=== PATIENT | female | born 1985 | race Two or more races ===

== ENCOUNTER 2016-10-10 09:08 | Emergency (ER) | payer OTHER ==
[~2016-10-10] VITALS: Ht 165.1 cm; Wt 75.3 kg
--- NOTE | 2016-10-10 09:56 | PD ---
HPI Travel History International Travel<30 Days: No Contact w/Intl Traveler<30Days: No Known Affected Area: No History of Present Illness HPI This patient is a 31-year-old 1 para 0 EDC is November 24, 2016 presently at 33 weeks and 4 days she presents with a chief complaint of a mucoid discharge She states that she's had a discharge throughout the however today 8 Progressively worse and then she passed a glob wanted to make sure that her water didn't break or she passed her mucous plug No watery type discharge no bleeding mild cramping in her lower abdomen no contractions no odors or itching in the discharge No fever no chills no nausea no vomiting no diarrhea or constipation baby is active No major problems History Past Medical History Narrative Medical No known drug allergies no major medical problems Obstetric History Obstetric History First Past Surgical History Narrative Surgical History of jaw surgery in 2003 Tonsils and 2007 Laser surgery of her cervix Family History Family History: Negative Social History Alcohol Use: No Tobacco Use: No Substance Abuse: No Allergies-Medications (Allergen,Severity, Reaction): Coded Allergies: No Known Allergies (Unverified , 10/10/16) Review of Systems General / Constitutional: No: Fever, Weight Gain, Weight Loss, Chills, Other Eyes: No: Diploplia, Blurred Vision, Visual changes, Pain, Photophobia, Other HENT: No: Headaches, Vertigo, Dental Difficulties, Lightheadedness, Other Cardiovascular: No: Irregular Rhythm, Chest Pain or Discomfort, Palpitations, Tachycardia, Syncope, Varicosities, Edema, Cyanosis, Other Respiratory: No: Cough, Short of Breath, Wheezing, Other Gastrointestinal: Abdominal Pain (mild cramping as per history of present illness) Genitourinary: Discharge (mucoid discharge as per history of present illness) Musculoskeletal: No: Limited ROM, Weakness, Cramping, Edema, Pain, Other Neurologic: No: Weakness, Dizziness, Syncope, Focal Abnormalities, Coordination Problem, Headache, Slurred Speech, Seizures, Other Physical Exam Narrative GENERAL: Well-nourished, well-developed patient. Alert oriented 3 and cooperative in no acute distress CARDIOVASCULAR: Regular rate and rhythm without murmurs, gallops, or rubs. RESPIRATORY: Breath sounds equal bilaterally. No accessory muscle use. ABDOMEN/GI: Gravid consistent with stated gestational age no palpable contractions no epigastric or right upper quadrant tenderness Gravid to [-] weeks size 34 weeks size Fundal Height: [-] GENITOURINARY: Speculum exam is done thin white discharge amnisure is negative wet prep done and pending no gross fluid no blood Cervix is visibly closed External Genitalia: intact and normal in appearance BUS glands: [-] Cervix: [-] Posterior firm Dilatation: [-] 0 Effacement: [-] 0 Station: [-] Ballotable Presentation: [-] Vertex Membranes: [intact Uterine Contractions: [-]0 no rhett contractions seen mild irritability FHT's: Category: [-] 1 Baseline: [-]140 Reactive: [-] + Variability: [-] Moderate [id number] variability Decels: [-] 0 EXTREMITIES: No cyanosis or edema. NEUROLOGICAL: Awake and alert. Motor and sensory grossly within normal limits. Five out of 5 muscle strength in all muscle groups. Normal speech. Data Data Vital Signs Reviewed: Yes (blood pressures 106/73 pulse 108 temperatures 98.4) MDM Medical Record Reviewed: No (no medical records available) Interpretation(s) 31-year-old at 33 weeks and 4 days No clinical evidence of ruptured membranes Clinical evidence of labor Rule out UTI Rule out vaginitis Narrative Course / MDM Plan wet prep and urinalysis returned we'll have the on coming hospitalist at an addendum with results Patient being signed out on coming hospitalist Plan External monitoring By mouth fluid hydration amnisure is negative Urinalysis Wet prep Labs to be reviewed upon return Diagnosis Diagnosis: Primary Impression: with 33 completed weeks gestation Additional Impression: Suspected problem with amniotic cavity and membrane not found Disposition: 01 DISCHARGE HOME Condition: Stable Ria Chou MD Oct 10, 2016 09:56
[2016-10-10] MEDS ORDERED: DOCO200C (10:17)
[2016-10-10 10:29] LABS: BLOOD, URINE NEG (NEG); GLUCOSE,URINE NEG (NEG); KETONE, URINE NEG (NEG); NITRITE,URINE NEG (NEG); PH, URINE 6.5 (5.0-8.5); URINE COLOR YELLOW (YELLW/STRAW)
[2016-10-10 10:48] LABS: BACTERIA, URINE RARE /hpf; COMMENT (UR) CULTURE INDICATED; CULTURE IF INDICATED CULTURE INDICATED; RBC, URINE 0-3 /hpf (0-3); WBC, URINE 0-2 /hpf (0-5)
== END 2016-10-10 11:03 | disposition home or self-care (01) ==
LOC: HOBED 09:08
DX: O26.93 Pregnancy related conditions, unspecified, third trimester (principal); Z3A.33 33 weeks gestation of pregnancy; B96.89 Other specified bacterial agents as the cause of diseases classified elsewhere
CPT/HCPCS: 81001; 84112; 87086; 87210; 99284

== ENCOUNTER 2016-11-18 11:31 | Emergency (ER) | payer OTHER ==
[~2016-11-18 11:31] MED LIST: DOCO200C
--- NOTE | 2016-11-18 11:46 | HHI.HP ---
HPI Chief Complaint possible ROM, pt c/o leakage of fluid vaginally Date Seen: Nov 18, 2016 Time Seen: 11:43 Travel History International Travel<30 Days: No Contact w/Intl Traveler<30Days: No Known Affected Area: No History of Present Illness HPI 31 yo at 39w1d presents for c/o possible rupture of membranes, c/o watery discharge vaginally, minimal but present since about 7am today. No VB. Good FM. Irregular contractions. Para: 0 : 1 Miscarriage: 0 : 0 History Past Medical History Medical History: Denies Significant Hx Obstetric History Obstetric History G1 = current Past Surgical History Narrative Surgical noncontributory Family History Family History: Negative Social History Alcohol Use: No Tobacco Use: No Substance Abuse: No Allergies-Medications (Allergen,Severity, Reaction): Coded Allergies: No Known Allergies (Unverified , 10/10/16) Home Meds Reported Medications Docosahexaenoic Acid ( Dha)200 Mg Cap1 10/10/16 Review of Systems General / Constitutional: Weight Gain, No: Fever, Chills, Other Eyes: No: Diploplia, Blurred Vision, Visual changes, Pain, Photophobia HENT: No: Headaches, Vertigo, Lightheadedness Cardiovascular: No: Irregular Rhythm, Chest Pain or Discomfort, Palpitations, Tachycardia, Syncope, Varicosities, Edema, Cyanosis Respiratory: No: Cough, Short of Breath, Other Gastrointestinal: No: Nausea, Vomiting, Diarrhea Genitourinary: Pelvic Pain, Other (watery vaginal discharge), No: Decreased Urinary Output, Oliguria Musculoskeletal: No: Limited ROM, Weakness, Cramping, Edema, Pain Skin: No Rash, No Itching, No Dryness, No Lumps, No Change in Pigmentation, No Change in Nails, No Alopecia, No Lesions Neurologic: No: Weakness, Dizziness, Syncope, Focal Abnormalities, Coordination Problem, Headache, Slurred Speech, Seizures Psychiatric: No: Depression, Suicidal Ideations, Homicidal Ideation Endocrine: No: Heat Intolerance, Cold Intolerance, Polydipsia, Polyuria, Other Physical Exam Narrative GENERAL: Well-nourished, well-developed patient. SKIN: Warm and dry. HEAD: Normocephalic and atraumatic. EYES: No scleral icterus. No injection or drainage. ENT: No nasal drainage noted. Mucous membranes pink. Airway patent. NECK: Supple, trachea midline. No JVD. CARDIOVASCULAR: Regular rate and rhythm without murmurs, gallops, or rubs. RESPIRATORY: Breath sounds equal bilaterally. No accessory muscle use. BREASTS: deferred. ABDOMEN/GI: Abdomen soft, non-tender, bowel sounds present, no rebound, no guarding Gravid to [39] weeks size Fundal Height: [39] GENITOURINARY: External Genitalia: intact and normal in appearance very posterior amnisure negative FHT's: Category: [I] Baseline: [150s] Reactive: [y] Variability: [y] Decels: [n] EXTREMITIES: No cyanosis or edema. BACK: Nontender without obvious deformity. No CVA tenderness. NEUROLOGICAL: Awake and alert. Motor and sensory grossly within normal limits. Five out of 5 muscle strength in all muscle groups. Normal speech. Data Data Vital Signs Reviewed: Yes Assessment/Plan Problem List: (1) Vaginal discharge during in third trimester Assessment and Plan 31 yo G1 at 39w1d seen in OB ED for c/o vaginal discharge, possible LOF 1) vaginal discharge: amnisure negative, intact membranes palpated on exam, no sign of infection; d/w pt increased cervical mucous at term; reassurance 2) status: vtx, R NST 3) dispo: d/c to home, labor precautions, office f/u next week as scheduled Discharge Planning today Attending Attestation I saw & evaluated pt Esthela Ennis MD Nov 18, 2016 11:46
== END 2016-11-18 12:54 | disposition home or self-care (01) ==
LOC: HOBED 11:31
DX: O26.93 Pregnancy related conditions, unspecified, third trimester (principal); N89.8 Other specified noninflammatory disorders of vagina; Z3A.39 39 weeks gestation of pregnancy
CPT/HCPCS: 59025; 84112

== ENCOUNTER 2016-12-01 01:45 | Inpatient (IN) | payer OTHER ==
[~2016-12-01] VITALS: Ht 165.1 cm; Wt 79.8 kg
[2016-12-01] VITALS (109 sets, daily range): BP systolic 92–136; BP diastolic 36–99; PULSE 57–214; RESP 17–20; TEMP 98–98.7
--- NOTE | 2016-12-01 02:35 | PD ---
HPI Chief Complaint contractions Date Seen: Dec 01, 2016 Travel History International Travel<30 Days: No Contact w/Intl Traveler<30Days: No Known Affected Area: No History of Present Illness HPI 31 yo @ 41w0d with care with Dr. Khan. Uncomplicated . GBS positive. Patient c/o UC q 5 min overnight and some slight bloody show. She was seen in the clinic yesterday and SVE was 3-4cm. She desires natural labor if possible. IOL was rescheduled. No LOF, VB. +FM. History Past Medical History Narrative Medical Cervical dysplasia Tattoo Obstetric History Obstetric History G1 Past Surgical History Narrative Surgical Laser conization for cervical dysplasia 2007 Jaw Reconstruction Tonsillectomy Family History Family History: Negative Social History Alcohol Use: No Tobacco Use: No Substance Abuse: No Allergies-Medications (Allergen,Severity, Reaction): Coded Allergies: No Known Allergies (Unverified , 10/10/16) Home Meds Reported Medications Docosahexaenoic Acid ( Dha)200 Mg Cap1 10/10/16 Review of Systems General / Constitutional: No: Fever, Chills Eyes: No: Blurred Vision, Visual changes HENT: No: Headaches, Lightheadedness Cardiovascular: No: Chest Pain or Discomfort, Palpitations Respiratory: No: Cough, Short of Breath Gastrointestinal: Abdominal Pain (contractions), No: Nausea, Vomiting, Diarrhea Genitourinary: Vaginal Bleeding (spotting), No: Urgency, Frequency, Dysuria, Discharge Musculoskeletal: No: Limited ROM, Weakness Skin: No Rash, No Itching, No Lesions Neurologic: No: Weakness, Dizziness, Headache Physical Exam Narrative GENERAL: Well-nourished, well-developed patient. Uncomfortable with UC SKIN: Warm and dry. HEAD: Normocephalic and atraumatic. EYES: No scleral icterus. No injection or drainage. ENT: No nasal drainage noted. Mucous membranes pink. Airway patent. NECK: trachea midline. No JVD. CARDIOVASCULAR: Regular rate and rhythm without murmurs, gallops, or rubs. RESPIRATORY: Breath sounds equal bilaterally. No accessory muscle use. ABDOMEN/GI: Abdomen soft, non-tender, no rebound, no guarding Gravid GENITOURINARY: External Genitalia: intact and normal in appearance BUS glands: [-] Cervix: [-] Dilatation: [-] Effacement: [-] Station: [-] Presentation: [-] Membranes: [intact or ruptured] Uterine Contractions: [-] FHT's: Category: I Baseline: 130 Reactive: +accelerations Variability: mod Decels: variable on presentation, resolved EXTREMITIES: No cyanosis or edema. BACK: Nontender without obvious deformity. NEUROLOGICAL: Awake and alert. Motor and sensory grossly within normal limits. Normal speech. Data Data Vital Signs Reviewed: Yes Orders Vital Signs (Adult) .ON ADMISSION (12/01/16 02:10) ^ Labor Status (12/01/16 02:10) ^ Non Stress Test (12/01/16 02:10) ^ Hydration (12/01/16 02:10) MDM Narrative Course / MDM 41 weeks Early labor CAT I FHT Occasional variable Irregular UC Plan Admit in labor [place] for GBS prophylaxis Patient s/p childbirth classes, no questions at this time Has birthing plan, desires natural labor and to minimize interventions Beatris Zepeda MD Dec 01, 2016 02:35
[2016-12-01] MEDS: LACTATED RINGER'S 1000 ML INJ 1,000 ML IV SCH ×2 (02:50→18:50)
[2016-12-01] MEDS ORDERED: LACTATED RINGER'S 1000 ML INJ 1,000 ML IV PRN (02:50)
[2016-12-01] MEDS ORDERED: CITRIC ACID-SODIUM CITRATE LIQ 30 ML UDC PO SCH (03:00)
[2016-12-01] MEDS ORDERED: OXYTOCIN 30 UNITS-500ML PREMIX 500 ML IV ONE (03:00)
[2016-12-01] MEDS ORDERED: LIDOCAINE HCL 1% 50 ML VIAL INFIL PRN (03:00)
[2016-12-01] MEDS ORDERED: MINERAL OIL 10 ML VIAL TOPICAL PRN (03:00)
[2016-12-01] MEDS ORDERED: PENICILLIN G POTASSIUM INJ 5,000,000 UNITS in SODIUM CHLORIDE 0.9% INJ 100 ML IV ONE (03:00)
[2016-12-01] MEDS ORDERED: LIDOCAINE HCL 1% 50 ML VIAL I-DERMAL PRN (03:00)
[2016-12-01] MEDS ORDERED: SODIUM CHLORID 0.9% 500 ML INJ 500 ML IV PRN (03:00)
[2016-12-01] MEDS ORDERED: ONDANSETRON HCL 4 MG/2 ML VIAL IV PRN (03:00)
--- NOTE | 2016-12-01 03:05 | HHI.HP ---
History & Physical H&P HPI Chief Complaint contractions Date Seen: Dec 01, 2016 Travel History International Travel<30 Days: No Contact w/Intl Traveler<30Days: No Known Affected Area: No History of Present Illness HPI 31 yo @ 41w0d with care with Dr. Khan. Uncomplicated . GBS positive. Patient c/o UC q 5 min overnight and some slight bloody show. She was seen in the clinic yesterday and SVE was 3-4cm. She desires natural labor if possible. IOL was rescheduled. No LOF, VB. +FM. History (Limited) History Past Medical History Narrative Medical Cervical dysplasia Tattoo Obstetric History Obstetric History G1 Past Surgical History Narrative Surgical Laser conization for cervical dysplasia 2007 Jaw Reconstruction Tonsillectomy Family History Family History: Negative Social History Alcohol Use: No Tobacco Use: No Substance Abuse: No Allergies-Medications Allergies-Medications (Allergen,Severity, Reaction): Coded Allergies: No Known Allergies (Unverified , 10/10/16) Home Meds Reported Medications Docosahexaenoic Acid ( Dha)200 Mg Cap1 10/10/16 ROS Review of Systems General / Constitutional: No: Fever, Chills Eyes: No: Blurred Vision, Visual changes HENT: No: Headaches, Lightheadedness Cardiovascular: No: Chest Pain or Discomfort, Palpitations Respiratory: No: Cough, Short of Breath Gastrointestinal: Abdominal Pain (contractions), No: Nausea, Vomiting, Diarrhea Genitourinary: Vaginal Bleeding (spotting), No: Urgency, Frequency, Dysuria, Discharge Musculoskeletal: No: Limited ROM, Weakness Skin: No Rash, No Itching, No Lesions Neurologic: No: Weakness, Dizziness, Headache Physical Exam Physical Exam Narrative GENERAL: Well-nourished, well-developed patient. Uncomfortable with UC SKIN: Warm and dry. HEAD: Normocephalic and atraumatic. EYES: No scleral icterus. No injection or drainage. ENT: No nasal drainage noted. Mucous membranes pink. Airway patent. NECK: trachea midline. No JVD. CARDIOVASCULAR: Regular rate and rhythm without murmurs, gallops, or rubs. RESPIRATORY: Breath sounds equal bilaterally. No accessory muscle use. ABDOMEN/GI: Abdomen soft, non-tender, no rebound, no guarding Gravid GENITOURINARY: External Genitalia: intact and normal in appearance 4-5cm/90/-1 FHT's: Category: I Baseline: 130 Reactive: +accelerations Variability: mod Decels: occasional variable EXTREMITIES: No cyanosis or edema. BACK: Nontender without obvious deformity. NEUROLOGICAL: Awake and alert. Motor and sensory grossly within normal limits. Normal speech. Data Data Data Vital Signs Reviewed: Yes Orders Vital Signs (Adult) .ON ADMISSION (12/01/16 02:10) ^ Labor Status (12/01/16 02:10) ^ Non Stress Test (12/01/16 02:10) ^ Hydration (12/01/16 02:10) MDM MDM Narrative Course / MDM 41 weeks Early labor CAT I FHT Occasional variable Irregular UC Plan Admit in labor [place] for GBS prophylaxis Patient s/p childbirth classes, no questions at this time Has birthing plan, desires natural labor and to minimize interventions Beatris Zepeda MD Dec 01, 2016 02:35 Beatris Zepeda MD Dec 01, 2016 03:05
[2016-12-01] MEDS ORDERED: SODIUM CHLOR 0.9% 1000 ML INJ 1,000 ML IV PRN (03:10)
[2016-12-01 03:32] LABS: AUTOMATED NEUTROPHIL # 10.5 TH/MM3 (1.8-7.7); BASOPHIL % 0.3 % (0.0-2.0); EOSINOPHIL # 0.1 TH/MM3 (0-0.4); EOSINOPHIL % 0.5 % (0.0-4.0); HEMO FLAGS DIFF FINAL; LYMPH % 13.9 % (9.0-44.0); LYMPHOCYTE # 1.8 TH/MM3 (1.0-4.8); MEAN CELL VOLUME 92.2 FL (80.0-100.0); MEAN CORPUSCULAR HEMOGLOBIN 30.8 PG (27.0-34.0); MEAN CORPUSCULAR HGB CONC 33.4 % (32.0-36.0); MONO % 5.2 % (0.0-8.0); NEUT % 80.1 % (16.0-70.0); PLATELET COUNT 152 TH/MM3 (150-450); RED BLOOD COUNT 4.12 MIL/MM3 (4.00-5.30); RED CELL DISTRIBUTION WIDTH 13.4 % (11.6-17.2); WHITE BLOOD COUNT 13.2 TH/MM3 (4.0-11.0)
[2016-12-01 04:29] LABS: BLOOD, URINE NEG (NEG); GLUCOSE,URINE NEG (NEG); KETONE, URINE NEG (NEG); NITRITE,URINE NEG (NEG); SQUAMOUS EPITHELIAL CELL URINE <1 /hpf (0-5); URINE COLOR YELLOW (YELLW/STRAW)
[2016-12-01 04:48] LABS: COMMENT (UR) CULT NOT INDICATED; CULTURE IF INDICATED CULT NOT INDICATED
[2016-12-01] MEDS: PENICILLIN G POTASSIUM INJ 2,500,000 UNITS in SODIUM CHLORIDE 0.9% INJ 100 ML IV SCH ×4 (07:50→21:43)
--- NOTE | 2016-12-01 08:49 | PD.LABORPN ---
Subjective Subjective arrived in active labor very anxious very reticent to have any interventions have had long discussions in our office she is doing very well without any interventions Objective Vital Signs Vital Signs Date Time Temp Pulse Resp B/P Pulse Ox O2 Delivery O2 Flow Rate FiO2 12/01/16 08:05 83 12/01/16 08:00 86 12/01/16 08:00 20 12/01/16 07:55 101 12/01/16 07:50 89 12/01/16 07:45 75 12/01/16 07:40 74 12/01/16 07:35 82 12/01/16 07:30 78 12/01/16 07:25 105 12/01/16 07:20 87 12/01/16 07:15 98.0 19 12/01/16 07:15 72 12/01/16 07:10 75 12/01/16 07:05 76 12/01/16 07:00 72 12/01/16 06:55 83 12/01/16 06:50 68 12/01/16 06:45 109 Objective 809/90/0 EFW 8 pelvis unproven but clinically adequate strip categoy 1 Assessment/Plan Assessment and Plan anticipate likely srom soon wanted fentanyl Sofia Soto MD Dec 01, 2016 08:48
--- NOTE | 2016-12-01 10:48 | PD.LABORPN ---
Subjective Subjective frustrated that her cervix has not changed, but tolerating contractions and declines AROM, epidural or pitocin at this time. strip reassuring. intervention unnecessary unless desires. Objective Vital Signs Vital Signs Date Time Temp Pulse Resp B/P Pulse Ox O2 Delivery O2 Flow Rate FiO2 12/01/16 10:00 18 12/01/16 09:55 83 12/01/16 09:50 75 12/01/16 09:45 72 12/01/16 09:30 17 12/01/16 09:25 79 12/01/16 09:20 72 12/01/16 09:15 68 12/01/16 09:10 69 12/01/16 09:05 65 12/01/16 09:00 62 12/01/16 08:55 75 12/01/16 08:50 73 12/01/16 08:45 70 12/01/16 08:45 18 12/01/16 08:40 74 107/71 12/01/16 08:40 66 12/01/16 08:30 76 12/01/16 08:20 71 12/01/16 08:05 83 12/01/16 08:00 86 12/01/16 08:00 20 12/01/16 07:55 101 12/01/16 07:50 89 12/01/16 07:45 75 12/01/16 07:40 74 12/01/16 07:35 82 12/01/16 07:30 78 12/01/16 07:25 105 12/01/16 07:20 87 12/01/16 07:15 98.0 19 12/01/16 07:15 72 12/01/16 07:10 75 12/01/16 07:05 76 12/01/16 07:00 72 12/01/16 06:55 83 12/01/16 06:50 68 12/01/16 06:45 109 Objective Pelvic Exam: Cervix: [-] Dilatation: [-] Effacement: [-] Station: [-] Presentation: [-] Membranes: [intact or ruptured] Uterine Contractions: [-] FHT's: Category: [-] Baseline: [-] Reactive: [-] Variability: [-] Decels: [-] Sofia Soto MD Dec 01, 2016 10:48
[2016-12-01] MEDS ORDERED: ePHEDrine/NS 25 MG/5 ML SYR ONE (13:35)
[2016-12-01] MEDS ORDERED: fentaNYL 2MCG-BUPIV 0.125% INJ 100 ML ONE (13:35)
--- NOTE | 2016-12-01 14:22 | PD.LABORPN ---
Subjective Subjective extremely painful rim but unable to even think of cervical exams or pushing very anxious and frightened convinced to have epidural Objective Vital Signs Vital Signs Date Time Temp Pulse Resp B/P Pulse Ox O2 Delivery O2 Flow Rate FiO2 12/01/16 13:55 84 12/01/16 13:50 62 12/01/16 13:45 66 12/01/16 13:45 18 12/01/16 13:40 70 12/01/16 13:35 91 12/01/16 13:30 62 12/01/16 13:25 62 12/01/16 13:20 71 12/01/16 13:15 72 12/01/16 13:15 17 12/01/16 13:10 73 12/01/16 13:05 70 12/01/16 13:00 76 12/01/16 12:55 81 12/01/16 12:50 80 12/01/16 12:45 98.7 12/01/16 12:45 80 12/01/16 12:42 18 12/01/16 12:40 79 12/01/16 12:35 74 12/01/16 12:30 72 12/01/16 12:30 19 12/01/16 12:10 94 12/01/16 12:05 83 12/01/16 12:00 90 12/01/16 11:55 88 12/01/16 11:45 18 12/01/16 11:25 91 12/01/16 11:20 84 12/01/16 11:15 92 12/01/16 11:10 105 12/01/16 11:05 107 12/01/16 11:00 81 12/01/16 10:55 93 12/01/16 10:50 82 12/01/16 10:45 92 12/01/16 10:30 19 12/01/16 10:00 18 12/01/16 09:55 83 12/01/16 09:50 75 12/01/16 09:45 72 12/01/16 09:30 17 12/01/16 09:25 79 12/01/16 09:20 72 12/01/16 09:15 68 12/01/16 09:10 69 12/01/16 09:05 65 12/01/16 09:00 62 12/01/16 08:55 75 12/01/16 08:50 73 12/01/16 08:45 70 12/01/16 08:45 18 12/01/16 08:40 74 107/71 12/01/16 08:40 66 12/01/16 08:30 76 12/01/16 08:20 71 12/01/16 08:05 83 12/01/16 08:00 86 12/01/16 08:00 20 12/01/16 07:55 101 12/01/16 07:50 89 12/01/16 07:45 75 12/01/16 07:40 74 12/01/16 07:35 82 12/01/16 07:30 78 12/01/16 07:25 105 12/01/16 07:20 87 12/01/16 07:15 98.0 19 12/01/16 07:15 72 12/01/16 07:10 75 12/01/16 07:05 76 12/01/16 07:00 72 12/01/16 06:55 83 12/01/16 06:50 68 12/01/16 06:45 109 Objective cervix anterior lip strip category one Assessment/Plan Assessment and Plan distraught convinced to have epidural will likely then be able to push Sofia Soto MD Dec 01, 2016 14:22
[2016-12-01] MEDS ORDERED: MEASLES, MUMPS, RUBELLA VACCINE 0.5 ML VIAL SQ ONE (16:00)
[2016-12-01] MEDS ORDERED: fentaNYL 2MCG-BUPIV 0.125% 100 ML EPIDURAL SCH (16:00)
[2016-12-01] MEDS ORDERED: DO NOT ADMINISTER ANTICOAGULANTS PRN (16:00)
[2016-12-01] MEDS ORDERED: ePHEDrine/NS 25 MG/5 ML SYR IV PRN (16:00)
[2016-12-01] MEDS ORDERED: DIPHTH/TETANUS/ACEL PERTUSSIS (BOOSTER) 0.5 ML VIAL/PFS IM ONE (16:00)
[2016-12-01] MEDS ORDERED: NO SYSTEM NARCOTICS PRN (16:00)
--- NOTE | 2016-12-01 18:20 | PD.OB.DELI ---
Anesthesia: Epidural Episiotomy: Midline Vaginal Delivery: Forceps, Vacuum Presentation: Occiput anterior Nuchal Cord: None Delayed cord clamping (45 sec): Yes Shoulder Dystocia: Suprapubic pressure given, Nayeli maneuver done, Wood's screw maneuver done : Male One Minute : 7 Five Minute : 8 Weight: 9 pounds one ounce Placenta: Spontaneous delivery Laceration: 3 deg, Involving anal sphincter Sofia Soto MD Dec 01, 2016 18:20
[2016-12-01] MEDS ORDERED: BENZOCAINE 20% TOPICAL SPRAY 60 ML CAN TOPICAL PRN (18:30)
[2016-12-01] MEDS ORDERED: SODIUM CHLORIDE 0.9% FLUSH 10 ML FLUSH IV FLUSH PRN (18:30)
[2016-12-01] MEDS ORDERED: ALUMINUM/MAGNESIUM/SIMETH 30 ML CUP PO PRN (18:30)
[2016-12-01] MEDS ORDERED: OXYTOCIN 30 UNITS-500ML PREMIX 500 ML IV SCH (18:30)
[2016-12-01] MEDS ORDERED: DOCUSATE SODIUM 50 MG/SENNA 8.6 MG TAB PO PRN (18:30)
[2016-12-01] MEDS ORDERED: ONDANSETRON ODT 4 MG TAB PO PRN (18:30)
[2016-12-01] MEDS ORDERED: ACETAMINOPHEN 325 MG TAB PO PRN (18:30)
[2016-12-01] MEDS ORDERED: ZOLPIDEM TARTRATE 5 MG TAB PO PRN (18:30)
[2016-12-01] MEDS: IBUPROFEN 600 MG TAB PO PRN (20:15)
[2016-12-01] MEDS ORDERED: SODIUM CHLORIDE 0.9% FLUSH 10 ML FLUSH IV FLUSH SCH (21:00)
[2016-12-01] MEDS: WITCH HAZEL 50%/GLYCERIN 12.5% 40 PAD JAR TOPICAL PRN (21:15)
[2016-12-01] MEDS ORDERED: oxyCODONE/ACETAMINOPHEN 5 MG/325 MG TAB PO PRN (21:45)
[2016-12-02] MEDS: LACTATED RINGER'S 1000 ML INJ 1,000 ML IV SCH (01:19)
[2016-12-02] MEDS: IBUPROFEN 600 MG TAB PO PRN ×3 (02:14→22:14)
[2016-12-02] MEDS: PENICILLIN G POTASSIUM INJ 2,500,000 UNITS in SODIUM CHLORIDE 0.9% INJ 100 ML IV SCH ×2 (02:20→05:50)
--- NOTE | 2016-12-02 07:55 | HHI.OB ---
Subjective Post Day: 1 Remarks no complaints Objective Vitals/I&O Vital Signs Date Time Temp Pulse Resp B/P Pulse Ox O2 Delivery O2 Flow Rate FiO2 12/01/16 22:45 98.6 60 18 107/70 12/01/16 22:45 98.6 60 18 107/70 12/01/16 22:45 98.6 60 18 107/70 12/01/16 22:15 18 12/01/16 20:00 91 120/84 12/01/16 19:36 18 12/01/16 19:30 82 120/79 12/01/16 19:15 18 12/01/16 19:00 115/99 12/01/16 19:00 18 12/01/16 18:45 98.5 17 12/01/16 18:31 62 113/83 12/01/16 18:30 18 12/01/16 18:00 100 106/86 12/01/16 17:15 18 12/01/16 16:45 18 12/01/16 16:10 87 12/01/16 16:05 81 12/01/16 16:00 85 106/67 12/01/16 16:00 18 12/01/16 16:00 74 12/01/16 15:40 77 12/01/16 15:35 87 12/01/16 15:31 72 101/65 12/01/16 15:30 94 12/01/16 15:25 70 12/01/16 15:20 67 12/01/16 15:15 85 116/90 12/01/16 15:15 214 12/01/16 15:01 58 115/66 12/01/16 15:00 64 12/01/16 14:55 57 12/01/16 14:50 75 12/01/16 14:48 87 98/62 12/01/16 14:46 126 100/36 12/01/16 14:45 58 12/01/16 14:45 98.7 12/01/16 14:40 59 12/01/16 14:35 65 12/01/16 14:30 69 101/62 12/01/16 14:30 67 12/01/16 14:30 66 12/01/16 14:25 74 12/01/16 14:25 73 92/78 12/01/16 14:25 75 12/01/16 14:22 17 12/01/16 14:20 73 12/01/16 14:20 100/62 12/01/16 14:20 96 12/01/16 14:20 77 12/01/16 14:15 92 12/01/16 14:15 125/64 12/01/16 14:15 79 18 12/01/16 14:10 85 122/81 12/01/16 14:10 62 12/01/16 14:07 90 127/79 12/01/16 14:05 86 12/01/16 14:02 72 136/79 12/01/16 14:00 78 12/01/16 13:55 84 12/01/16 13:50 62 12/01/16 13:45 66 12/01/16 13:45 18 12/01/16 13:40 70 12/01/16 13:35 91 12/01/16 13:30 62 12/01/16 13:25 62 12/01/16 13:20 71 12/01/16 13:15 72 12/01/16 13:15 17 12/01/16 13:10 73 12/01/16 13:05 70 12/01/16 13:00 76 12/01/16 12:55 81 12/01/16 12:50 80 12/01/16 12:45 98.7 12/01/16 12:45 80 12/01/16 12:42 18 12/01/16 12:40 79 12/01/16 12:35 74 12/01/16 12:30 72 12/01/16 12:30 19 12/01/16 12:10 94 12/01/16 12:05 83 12/01/16 12:00 90 12/01/16 11:55 88 12/01/16 11:45 18 12/01/16 11:25 91 12/01/16 11:20 84 12/01/16 11:15 92 12/01/16 11:10 105 12/01/16 11:05 107 12/01/16 11:00 81 12/01/16 10:55 93 12/01/16 10:50 82 12/01/16 10:45 92 12/01/16 10:30 19 12/01/16 10:00 18 12/01/16 09:55 83 12/01/16 09:50 75 12/01/16 09:45 72 12/01/16 09:30 17 12/01/16 09:25 79 12/01/16 09:20 72 12/01/16 09:15 68 12/01/16 09:10 69 12/01/16 09:05 65 12/01/16 09:00 62 12/01/16 08:55 75 12/01/16 08:50 73 12/01/16 08:45 70 12/01/16 08:45 18 12/01/16 08:40 74 107/71 12/01/16 08:40 66 12/01/16 08:30 76 12/01/16 08:20 71 12/01/16 08:05 83 12/01/16 08:00 86 12/01/16 08:00 20 12/01/16 07:55 101 Objective Remarks GENERAL: Well-nourished, well-developed patient. CARDIOVASCULAR: Regular rate and rhythm without murmurs, gallops, or rubs. RESPIRATORY: Breath sounds equal bilaterally. No accessory muscle use. ABDOMEN/GI: Abdomen soft, non-tender. Fundus: Firm, non-tender at umbilicus. GENITOURINARY: Light to moderate bleeding. EXTREMITIES: No cyanosis or edema, non-tender, without signs of DVT. Medications and IVs Current Medications Medications (Trade) Dose Ordered Sig/Delfina Route Start Time Stop Time Status Last Admin Lactated Ringer's 1,000 ml @ 125 mls/hr Q8H IV 12/01/16 02:50 12/01/16 02:50 Lactated Ringer's 1,000 ml @ 3,000 mls/hr Q20M PRN IV 12/01/16 02:50 12/01/16 07:04 (NS 1000 ml Inj) 1,000 ml @ 100 mls/hr Q10H PRN IV 12/01/16 03:10 (Zofran Inj) 4 mg Q6H PRN IV 12/01/16 03:00 (fentaNYL INJ) 50 mcg Q1H PRN IV PUSH 12/01/16 03:00 Fentanyl Citrate 100 mcg 100 mcg Q1H PRN IV PUSH 12/01/16 03:00 12/01/16 09:36 (Pfizerpen-G Inj/ NS Inj) 100 ml @ 200 mls/hr Q4H IV 12/01/16 07:00 12/01/16 16:00 (Muri-Lube Oil) 10 ml UNSCH PRN TOPICAL 12/01/16 03:00 Miscellaneous Information No systemic narcotics to be given except... UNSCH PRN .XX 12/01/16 16:00 12/02/16 15:59 Miscellaneous Information DO NOT ADMINISTER ANY ANTICOAGUL... UNSCH PRN .XX 12/01/16 16:00 12/02/16 15:59 (fentaNYL 2MCG-BUPIV 0.125% INJ) 100 ml @ 0 mls/hr TITRATE EPIDURAL 12/01/16 16:00 (ePHEDrine/NS 25 MG/5 ML SYR) 10 mg UNSCH PRN IV 12/01/16 16:00 12/02/16 15:59 (NS Flush) 2 ml BID IV FLUSH 12/01/16 21:00 (NS Flush) 2 ml UNSCH PRN IV FLUSH 12/01/16 18:30 (Tylenol) 650 mg Q4H PRN PO 12/01/16 18:30 (Motrin) 600 mg Q6H PRN PO 12/01/16 18:30 12/02/16 02:14 (Americaine 20% Top Spr) 1 spray Q4H PRN TOPICAL 12/01/16 18:30 12/01/16 21:15 (Tucks Pads) 1 applic QID PRN TOPICAL 12/01/16 18:30 12/01/16 21:15 (Deandra-Colace) 2 tab Q12H PRN PO 12/01/16 18:30 (Ambien) 5 mg HS PRN PO 12/01/16 18:30 (Mag-Al Plus Susp Liq) 15 ml Q8H PRN PO 12/01/16 18:30 (Zofran Odt) 4 mg Q6H PRN PO 12/01/16 18:30 (Percocet 5-325 Mg) 1 tab Q4H PRN PO 12/01/16 21:45 Assessment/Plan Problem List: (1) Vaginal delivery Assessment and Plan PPD #1 routine PP care Discharge Planning routine Attending Attestation pt seen by May Flores MD Dec 02, 2016 07:55
[2016-12-02 09:10] VITALS: BP 121/83; PULSE 80; RESP 18; TEMP 98
[2016-12-02 21:40] VITALS: BP 106/75; PULSE 86; RESP 18; TEMP 99.1
[2016-12-02] MEDS: WITCH HAZEL 50%/GLYCERIN 12.5% 40 PAD JAR TOPICAL PRN (22:13)
--- NOTE | 2016-12-03 11:58 | HHI.OB ---
Subjective Post Day: 2 Remarks This note is being entered after Daphnie was discharged to be with her son. Yesterday, her son showed some seizure activity that was confirmed by Dr. Euceda (director of enterprise strategy) and he was transferred to [facility]. I was called at one am to be notified of this transfer and gave the verbal order to allow Daphnie to be discharged so that she could be with her son in [place]. I described the delivery to Dr. Euceda as difficult. I had met Daphnie just this week. She was committed to minimal intervention, at 40 + weeks and with an inducible cervix. Despite her petite frame, she did not appear to be carrying a large infant and measured appropriately. She asked not to have membranes stripped and we discussed or Monday to re evaluate with BPP and cervical exam. She came in in labor and intact and asked to avoid AROM or pitocin. She reached 9 cm eventually and agreed to AROM. Due to extreme pain and exhaustion she agreed to epidural. She pushed for two hours and we discussed assisted delivery. The baby was +1 to + 2 and vacuum would not hold, so forceps applied after assessing position, cervix, bladder and ghost application. Accurate placement was confirmed.It was a strong pull that brought the baby to perineum in one contraction. She was exhausted and cup vacuum applied to assist . She then incurred a moderate shoulder dystocia which was resolved by delivering posterior shoulder first. said he would relay this information to Dr. Barrett at [place]. I spoke with Dr. Barrett this am to learn of bilateral stable subarachnoid hemorrhages. No further seizure activity. Parents were not in unit at that time. I have texted Daphnie to have access to my cell for questions and updates. She will follow up in the office in one week for a partial third degree repair. Objective Vitals/I&O Vital Signs Date Time Temp Pulse Resp B/P Pulse Ox O2 Delivery O2 Flow Rate FiO2 12/02/16 21:40 99.1 12/02/16 21:40 86 18 106/75 Objective Remarks GENERAL: Well-nourished, well-developed patient. CARDIOVASCULAR: Regular rate and rhythm without murmurs, gallops, or rubs. RESPIRATORY: Breath sounds equal bilaterally. No accessory muscle use. ABDOMEN/GI: Abdomen soft, non-tender. Fundus: Firm, non-tender at umbilicus. GENITOURINARY: Light to moderate bleeding. EXTREMITIES: No cyanosis or edema, non-tender, without signs of DVT. Assessment/Plan Problem List: (1) Vaginal delivery Assessment and Plan PPD #1 routine PP care Discharge Planning routine Sofia Soto MD Dec 03, 2016 11:58
== END 2016-12-03 04:06 | disposition home or self-care (01) | DRG 775 ==
LOC: HOBED 01:45 → H2EB 02:54 → H1EA 21:33
PROVIDERS: ADMIT Obstetrics & Gynecology; ATTEND Obstetrics & Gynecology
PROC: 0DQR0ZZ Repair Anal Sphincter, Open Approach (ICD-10-PCS; principal; 2016-12-01)
PROC: 10D07Z5 Extraction of Products of Conception, High Forceps, Via Natural or Artificial Opening (ICD-10-PCS; 2016-12-01)
PROC: 10D07Z6 Extraction of Products of Conception, Vacuum, Via Natural or Artificial Opening (ICD-10-PCS; 2016-12-01)
PROC: 0W8NXZZ Division of Female Perineum, External Approach (ICD-10-PCS; 2016-12-01)
PROC: 10907ZC Drainage of Amniotic Fluid, Therapeutic from Products of Conception, Via Natural or Artificial Opening (ICD-10-PCS; 2016-12-01)
DX: O66.0 Obstructed labor due to shoulder dystocia (principal); O70.20 Third degree perineal laceration during delivery, unspecified; O99.824 Streptococcus B carrier state complicating childbirth; Z37.0 Single live birth; Z3A.41 41 weeks gestation of pregnancy; Z87.410 Personal history of cervical dysplasia
CPT/HCPCS: 59025; 81001; 85025; 86900; 86901; J2540; J3010; J7120